=== PATIENT | female | born 1985 | race Caucasian/White ===

== ENCOUNTER 2019-11-01 15:42 | Outpatient (CLI) | payer BC, SELFPAY ==
--- NOTE | ~2019-11-01 | CT_ITS ---
EXAMINATION: CT abdomen pelvis wo/w con DATE: 11/01/2019 16:43 INDICATION: Hematuria TECHNIQUE: Computed tomography (CT) of the abdomen and pelvis was performed without intravenous contr ast. CT of the abdomen and pelvis was then performed with a total of 130 mL Omnipaque 350 intravenous contrast using a double-bolus technique for simultaneous opacification of the renal parenchyma and r enal collecting system. The dose-length product (DLP) was 2864.49 mGy-cm. Maximum intensity projectio n 3D-reconstructions of the collecting system were created by the technologist at a separate workstat ion. Automated exposure control and iterative reconstruction technique were employed. COMPARISON: None FINDINGS: The lung bases are clear. The heart size is normal. The liver, spleen, pancreas, gallbladde r, and adrenal glands are normal. The kidneys are unremarkable. No stones are identified in the kidne ys, ureters, or bladder. There is no hydronephrosis or hydroureter. No suspicious renal or urothelial lesion is identified. There is chronic increase in number of nonenlarged retroperitoneal lymph nodes . There is no free intraperitoneal gas or evidence of bowel obstruction. A suture line is noted in th e right adnexa. There is a 2.4 cm cyst of the left ovary. A fat-containing umbilical hernia is noted. An IUD is present in the uterus in expected position. IMPRESSION: 1. No CT correlate for the patient's symptoms. Reviewed, dictated and finalized at location A.
--- NOTE | ~2019-11-01 | XR_ITS ---
EXAMINATION: XR abdomen/kub 1V INDICATION: Hematuria TECHNIQUE: Supine views of the abdomen were obtained on 2 radiographs. COMPARISON: None FINDINGS: No abnormal calcifications are identified. The bowel gas pattern is normal. A moderate volu me of colonic stool is present. An IUD is noted in the pelvis. IMPRESSION: 1. No radiographic correlate for the patient's symptoms. Reviewed, dictated and finalized at location A.
[2019-11-01 16:11] LABS: Basophils Absolute Auto 0.1 K/mm3 (0.0-0.1); Basophils Percent Auto 0.7 % (0.2-1.2); Eosinophils Absolute Auto 0.6 K/mm3 (0-0.3); Eosinophils Percent Auto 6.1 % (0-4.4); Hematocrit 38.8 % (37.0-47.0); Hemoglobin 13.1 g/dL (12.0-15.0); Immature Granulocyte Absolute 0.03 K/mm3 (0.00-0.031); Immature Granulocyte Percent A 0.3 % (0-0.5); Lymphocytes Percent Auto 17.5 % (18.3-44.2); Mean Corpuscular HGB Conc 33.8 g/dl (32-36); Mean Corpuscular Hemoglobin 30.9 pg (26-34); Mean Corpuscular Volume 91.5 fl (80-100); Mean Platelet Volume 9.9 fl (7.4-10.4); Monocytes Absolute Auto 0.5 K/mm3 (0.1-0.6); Monocytes Percent Auto 5.1 % (2.6-8.5); Neutrophils Absolute Auto 7.2 K/mm3 (1.3-6.7); Neutrophils Percent Auto 70.3 % (45.5-73.1); Platelet Count Result 257 k/mm3 (150-375); Red Blood Count 4.24 M/mm3 (4.2-5.4); Red Cell Distribution Width 13.1 % (11.5-14.5); White Blood Count 10.3 K/mm3 (4.5-10.0)
[2019-11-01 16:22] LABS: Blood Urea Nitrogen 10 mg/dL (7-17); Calcium 8.4 mg/dL (8.4-10.2); Carbon Dioxide 29 mmol/L (22-30); Chloride 103 mmol/L (98-107); Estimated Glomerular Filt Rate > 60; Glucose 106 mg/dL (65-105); Potassium 3.6 mmol/L (3.4-5.0); Sodium 138 mmol/L (137-145)
== END 2019-11-01 15:43 | disposition home or self-care (01) ==
PROVIDERS: PCP Family Medicine; Visit Provider Nurse Practitioner Family
DX: R10.9 Unspecified abdominal pain (principal); R31.9 Hematuria, unspecified
CPT/HCPCS: 36415; 74018; 74178; 80048; 85025; Q9967

== ENCOUNTER 2020-01-06 11:30 | Outpatient (CLI) | payer BC, SELFPAY ==
[2020-01-06 13:15] LABS: Blood Urea Nitrogen 13 mg/dL (7-17); Calcium 9.6 mg/dL (8.4-10.2); Carbon Dioxide 30 mmol/L (22-30); Chloride 103 mmol/L (98-107); Estimated Glomerular Filt Rate > 60; Glucose 87 mg/dL (65-105); Potassium 4.2 mmol/L (3.4-5.0); Sodium 138 mmol/L (137-145)
[2020-01-06 13:55] LABS: Free T4 Free Thyroxine 0.95 ng/mL (0.78-2.19); Vitamin D 25 Hydroxy 41.9 ng/mL
[2020-01-06 18:33] LABS: Hemoglobin A1C 4.9 % (<5.7)
== END 2020-01-06 11:31 | disposition home or self-care (01) ==
LOC: ANHLAB 11:32
PROVIDERS: PCP Family Medicine; Visit Provider Physician Assistant
DX: E03.9 Hypothyroidism, unspecified (principal); Z86.32 Personal history of gestational diabetes; E55.9 Vitamin D deficiency, unspecified
CPT/HCPCS: 36415; 80048; 82306; 83036; 84439; 84443

== ENCOUNTER 2020-05-31 14:24 | Outpatient (CLI) | payer BC, SELFPAY ==
[2020-05-31 15:40] LABS: Free T4 Free Thyroxine 0.79 ng/mL (0.78-2.19)
[2020-06-04 06:32] LABS: Triiodothyronine T3 Free 2.7 pg/mL (2.3-4.2)
== END 2020-05-31 14:25 | disposition home or self-care (01) ==
PROVIDERS: PCP Family Medicine; Visit Provider Physician Assistant
DX: E03.9 Hypothyroidism, unspecified (principal)
CPT/HCPCS: 36415; 84439; 84443; 84481

== ENCOUNTER 2020-08-08 09:33 | Outpatient (CLI) | payer BC, SELFPAY ==
[2020-08-08 10:21] LABS: Hemoglobin A1C 4.9 % (<5.7)
[2020-08-08 10:22] LABS: Anion Gap 8 mmol/L (8-16); Blood Urea Nitrogen 13 mg/dL (7-17); Calcium 8.9 mg/dL (8.4-10.2); Carbon Dioxide 30 mmol/L (22-30); Chloride 102 mmol/L (98-107); Estimated Glomerular Filt Rate > 60; Glucose 100 mg/dL (65-105); Potassium 3.9 mmol/L (3.4-5.0); Sodium 140 mmol/L (137-145)
[2020-08-08 10:47] LABS: Free T4 Free Thyroxine 1.25 ng/mL (0.78-2.19); Vitamin D 25 Hydroxy 44.2 ng/mL
== END 2020-08-08 09:34 | disposition home or self-care (01) ==
LOC: ANHLAB 09:34
PROVIDERS: PCP Family Medicine; Visit Provider Physician Assistant
DX: E55.9 Vitamin D deficiency, unspecified (principal); E03.9 Hypothyroidism, unspecified; Z86.32 Personal history of gestational diabetes
CPT/HCPCS: 36415; 80048; 82306; 83036; 84439; 84443

== ENCOUNTER 2021-02-16 08:01 | Outpatient (CLI) | payer BC, SELFPAY ==
[2021-02-16 09:50] LABS: Hemoglobin 14.1 g/dL (12.0-15.0); Mean Corpuscular HGB Conc 35.3 g/dl (32-36); Mean Corpuscular Hemoglobin 31.7 pg (26-34); Mean Corpuscular Volume 89.9 fl (80-100); Mean Platelet Volume 10.1 fl (7.4-10.4); Platelet Count Result 254 k/mm3 (150-375); Red Blood Count 4.45 M/mm3 (4.2-5.4); Red Cell Distribution Width 12.8 % (11.5-14.5); White Blood Count 7.1 K/mm3 (4.5-10.0)
[2021-02-16 10:05] LABS: Anion Gap 8 mmol/L (8-16); Blood Urea Nitrogen 13 mg/dL (7-17); Calcium 9.2 mg/dL (8.4-10.2); Carbon Dioxide 29 mmol/L (22-30); Chloride 104 mmol/L (98-107); Cholesterol 166 mg/dL (0-200); Estimated Glomerular Filt Rate > 60; Glucose 90 mg/dL (65-105); HDL Direct 39 mg/dL; Potassium 3.7 mmol/L (3.4-5.0); Sodium 141 mmol/L (137-145); Triglycerides 78 mg/dL (<150)
[2021-02-16 10:16] LABS: LDL Cholesterol Direct 97 mg/dL
[2021-02-16 11:05] LABS: Vitamin D 25 Hydroxy 33.8 ng/mL
== END 2021-02-16 08:02 | disposition home or self-care (01) ==
LOC: ANHLAB 08:01
PROVIDERS: PCP Family Medicine; Referring Provider Internal Medicine Endocrinology, Diabetes & Metabolism; Visit Provider Nurse Practitioner Family
DX: Z13.1 Encounter for screening for diabetes mellitus (principal); E55.9 Vitamin D deficiency, unspecified; E03.9 Hypothyroidism, unspecified; J01.00 Acute maxillary sinusitis, unspecified; Z13.220 Encounter for screening for lipoid disorders
CPT/HCPCS: 36415; 80048; 80061; 82306; 84439; 84443; 85027

== ENCOUNTER 2021-08-22 08:30 | Emergency (ER) | payer BC, SELFPAY ==
[2021-08-22 08:34] VITALS: BP 144/84; PULSE 72; RESP 16; TEMP 36.1; O2SAT 100
[2021-08-22 08:45] VITALS: BP 144/84; PULSE 72; RESP 16; TEMP 36.1; O2SAT 100
[2021-08-22 08:47] VITALS: O2SAT 100
[2021-08-22] MEDS: SODIUM CHLORIDE 0.9% IV 1,000 ML 999 ML IV CONT (10:06)
[2021-08-22] MEDS: KETOROLAC 15 MG/ML VIAL (*BKC) IV PUSH (10:06)
[2021-08-22] MEDS: ONDANSETRON INJ 4 MG/2 ML VIAL IV PUSH (10:07)
[2021-08-22 10:10] LABS: Basophils Percent Auto 0.5 % (0.2-1.2); Eosinophils Absolute Auto 0.3 K/mm3 (0-0.3); Eosinophils Percent Auto 3.5 % (0-4.4); Hematocrit 37.7 % (37.0-47.0); Immature Granulocyte Absolute 0.02 K/mm3 (0.00-0.031); Immature Granulocyte Percent A 0.2 % (0-0.5); Lymphocytes Absolute Auto 1.33 K/mm3 (0.9-3.2); Lymphocytes Percent Auto 16.5 % (18.3-44.2); Mean Corpuscular HGB Conc 34.5 g/dl (32-36); Mean Corpuscular Hemoglobin 31.8 pg (26-34); Mean Corpuscular Volume 92.2 fl (80-100); Mean Platelet Volume 9.3 fl (7.4-10.4); Monocytes Absolute Auto 0.4 K/mm3 (0.1-0.6); Monocytes Percent Auto 4.5 % (2.6-8.5); Neutrophils Percent Auto 74.8 % (45.5-73.1); Platelet Count Result 253 k/mm3 (150-375); Red Blood Count 4.09 M/mm3 (4.2-5.4); Red Cell Distribution Width 13.1 % (11.5-14.5); White Blood Count 8.1 K/mm3 (4.5-10.0)
--- NOTE | 2021-08-22 10:24 | PC.NURSE ---
Patient refused Decadron stating, she doesnt like steroids
[2021-08-22 10:55] LABS: Alanine Aminotransferase 23 U/L (4-35); Albumin Level 4.3 g/dL (3.5-5.1); Alkaline Phosphatase 38 U/L (38-126); Anion Gap 6 mmol/L (8-16); Aspartate Amino Transferase 28 U/L (14-36); Bilirubin,Total 0.5 mg/dL (0.2-1.3); Blood Urea Nitrogen 15 mg/dL (7-17); Calcium 8.8 mg/dL (8.4-10.2); Carbon Dioxide 29 mmol/L (22-30); Chloride 103 mmol/L (98-107); Estimated CRCL calculation 123 ml/min; Estimated Glomerular Filt Rate > 60; Glucose 95 mg/dL (65-110); Potassium 4.1 mmol/L (3.4-5.0); Sodium 138 mmol/L (137-145)
[2021-08-22 11:04] VITALS: BP 128/78; PULSE 62; RESP 16; O2SAT 94
--- NOTE | 2021-08-22 12:23 | ED.GENADULT ---
HPI - General Adult General Chief complaint: Upper Respiratory Infection Stated complaint: estes Time Seen by Provider: 08/22/21 09:08 Source: patient Mode of arrival: ambulatory Limitations: no limitations History of Present Illness HPI narrative: Patient is a 36-year-old female with chief complaint of headache and congestion over the past 3 days. Patient reports that she is a chronic migraine suffer however this migraine is in the frontal aspect of her head and down posteriorly has not been evacuated by taking her Maxalt. Patient denies changes to her vision or hearing or neurological deficits. Patient reports nausea and a few episodes of vomiting. Patient reports mild photophobia. Denies any gait changes, extremity weakness, speech changes. patient reports she was exposed to COVID via close contact. Related Data Home Medications Medication Instructions Recorded Confirmed spironolactone 100 mg tablet 100 mg PO DAILY 08/23/19 08/21/21 spironolactone 25 mg tablet 25 mg PO DAILY 02/06/21 08/21/21 Allergies Allergy/AdvReac Type Severity Reaction Status Date / Time No Known Allergies Allergy Verified 08/21/21 09:24 Review of Systems Review of Systems: CONSTITUTIONAL: Denies fever, chills, or sweats. EYES: Denies visual changes, redness, or discharge. ENT: Reports rhinorrhea or congestion Denies sore throat or otalgia. CARDIOVASCULAR: Denies chest pain, palpitations, or edema. RESPIRATORY: Denies cough or dyspnea. GASTROINTESTINAL: Denies abdominal pain, nausea, vomiting, or diarrhea. GENITOURINARY: Denies dysuria or hematuria. SKIN: Denies rash or itching. MUSCULOSKELETAL: Denies back pain, joint pain, or myalgia. NEUROLOGIC: Reports headache,Denies numbness, dizziness, or weakness. PSYCHIATRIC: Denies anxiety or depression. [facility] Past Medical History Medical History (Updated 08/22/21 @ 12:42 by Osei Tidwell PA-C) Anxiety and depression Colonic diverticular disease History of gestational diabetes mellitus, not currently Hypothyroidism (acquired) Plantar fasciitis Right ankle pain Right foot pain Rupture of plantar fascia of right foot Vitamin D deficiency, unspecified Surgical History Surgical History History of bilateral breast reduction surgery 2015 History of delivery 2005, 2012, 2017 History of D&C 2016 History of repair of ACL 2009 Family History Family History Grandparent Cerebrovascular accident Other Diabetes mellitus Family history of obesity Family history of thyroid disease Social History Social History Years smoked: 5 Smoking status: Current every day smoker Second hand tobacco smoke exposure: No Alcohol intake: current Alcohol use details: Occasional Substance use: current Substance use type: marijuana 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 HEAD: Normocephalic, atraumatic. EYES: PERRLA and EOMI. CHEST: Clear to auscultation. No respiratory distress. No wheezes rales or rhonchi. HEART: Regular rate and rhythm. No murmur heard. Normal peripheral pulses. EXTREMITIES: Normal range of motion. No edema. SKIN: Warm, dry, no rash. NEURO: No focal deficits. Alert and oriented x3. Gait is steady. Speech clear and appropriate. PSYCH: Normal mood and affect. Course Vital Signs Vital signs: Vital Signs Temperature 96.9 F L 08/22/21 08:34 Pulse Rate 72 08/22/21 08:34 Respiratory Rate 16 08/22/21 08:34 Blood Pressure 144/84 H 08/22/21 08:34 Pulse Oximetry 100 08/22/21 08:34 Temperature 96.9 F L 08/22/21 08:45 Pulse Rate 73 08/22/21 12:54 Respiratory Rate 18 08/22/21 12:54 B
[2021-08-22 12:54] VITALS: BP 125/83; PULSE 73; RESP 18; O2SAT 100
[2021-08-22 20:49] LABS: SARS-CoV-2 RNA PCR Negative
== END 2021-08-22 12:55 | disposition home or self-care (01) ==
PROVIDERS: Physician Assistant; Emergency Provider Emergency Medicine; PCP Family Medicine
DX: R51.9 Headache, unspecified (principal); F41.9 Anxiety disorder, unspecified; F32.9 Major depressive disorder, single episode, unspecified; E03.9 Hypothyroidism, unspecified
CPT/HCPCS: 36415; 80053; 85025; 96361; 96374; 96375; 99284; C9803; J1885; J2405; J7030; U0003; U0005

== ENCOUNTER 2021-09-27 00:32 | Day surgery (SDC) | payer BC, SELFPAY ==
[2021-09-20 11:04] VITALS: BMI 36.3
--- NOTE | 2021-09-20 11:18 | PC.NURSE ---
Report to the Outpatient Waiting Room, entrance under the green pavilion located off [facility], at time 0600 on date 09/27/21. OR Time: 0730. - You will be asked a series of questions to screen for COVID 19 for your protection. - A mask is required within the hospital. - No visitors are allowed at this time. Preoperative COVID Testing Requirements: TO E-MAIL COPY OF CARD No COVID Test needed if: (proof is required; if not received patient will have Rapid Test prior to entry) - Patient has received COVID Vaccine at least 14 days prior to procedure date or - Patient has positive COVID test result within last 90 days of surgery date. COVID Test needed if above criteria is not met Patients may have clear liquids (water, carbonated beverages, clear teas, apple juice) until 3 hours prior to surgery with a maximum of 20 ounces. - No food from midnight until time of surgery Take the following medications with a SIP of water the morning of surgery: LEVOTHYROXINE Medications to discontinue per physician: N/A Date to take last dose: N/A Please no make-up, nail swedish, hairspray, perfume, deodorant, or body powder the day of surgery. No jewelry (including any body piercings) or valuables the day of surgery, leave them at home. Please take a shower or bath the night before, or the morning of, surgery with an antibacterial soap. Wear comfortable, loose fitting clothing. - Jewelry must be removed prior to entering the operating room. Rings and piercings that are not removed may be cut off. - The hospital will not accept responsibility for valuables. - Please leave all valuables, including medications, at home the day of surgery. If you are going home after surgery, a licensed hazmat cdl driver must drive you home. - NO public transportation without another adult. - We recommend that an adult stay with you for 24 hours following discharge. - We also recommend that you do not drive, make important decision, drink alcoholic beverages, or take any drugs that were not prescribed by your health care provider for at least 24 hours after your discharge time. Follow any additional instructions given to you from your surgeon. Telephone instructions given to KAY MIRZA and asked if any additional questions and then verbalized understanding. Patient advised to call surgeon office or pre surgery nurse liaison [phone] if any additional questions.
--- NOTE | 2021-09-26 09:36 | PM.IMHP ---
H&P: HPI History of Present Illness Date/Time: 09/26/21 09:36 Chief Complaint: Right foot pain Narrative: 36-year-old with right foot pain. Previous ankle fracture. Subsequent has had plantar heel pain which is worse with weight-bearing and activity. Worse at the end of the day. She has undergone several cortisone injections, physical therapy, home exercises and continues to have symptoms. She presents now for operative treatment. Review of Systems Constitutional: Constitutional: Denies fever(s) Eyes: Eyes: Denies blurry vision ENT: Reports Normal hearing present Cardiovascular: Cardiovascular: Denies chest pain and Denies dyspnea Respiratory: Respiratory: Denies dyspnea and Denies wheezing Gastrointestinal: Gastrointestinal: Denies abdominal pain Genitourinary: Genitourinary: Denies urinary urgency Musculoskeletal: Musculoskeletal: Reports as per HPI and Denies numbness Integumentary/Breasts: Skin/Breast: Denies changing lesions and Denies sores Neurologic: Reports Normal hearing present, Denies behavioral changes, Denies confusion, Denies numbness and Denies convulsions Psychiatric: Psychiatric: Denies behavioral changes, Denies confusion and Denies hallucinations Endocrine: Endocrine: Denies heat intolerance Hematologic/Lymphatic: Hematologic/Lymphatic: Denies easy bleeding Allergic/Immunologic: Allergic/Immunologic: Denies wheezing PMFSH Past Medical History Medical History Anxiety and depression Colonic diverticular disease History of gestational diabetes mellitus, not currently Hypothyroidism (acquired) Plantar fasciitis Right ankle pain Right foot pain Rupture of plantar fascia of right foot Vitamin D deficiency, unspecified Surgical History Surgical History History of bilateral breast reduction surgery 2015 History of delivery 2005, 2012, 2017 History of D&C 2016 History of repair of ACL 2009 Family History Family History Grandparent Cerebrovascular accident Other Diabetes mellitus Family history of obesity Family history of thyroid disease Social History Social History Smoking packs per day: 0.5 Smoking cigarettes per day: 10.0 Years smoked: 5 Smoking pack-years: 2.50 Smoking status: Former smoker Tobacco type: cigarettes Second hand tobacco smoke exposure: No Smoking end date: 08/18/07 Alcohol intake: current Drinks per week: 4 Alcohol use details: Occasional Substance use: never Substance use type: does not use Living arrangements: with family 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 Gender identity (if verbalized by the patient): Female Spiritual care concerns: No Meds Home Medications and Allergies Home Medications Medication Instructions Recorded Confirmed Type spironolactone 100 mg tablet 100 mg PO DAILY 08/23/19 09/20/21 History levothyroxine 112 mcg tablet 112 mcg PO QAM 30 Days #30 tablet 02/06/21 09/20/21 Rx spironolactone 25 mg tablet 25 mg PO DAILY 02/06/21 09/20/21 History liraglutide (weight loss) 3 mg/0.5 2.4 mg SUB-Q DAILY #15 ml 09/24/21 Rx mL (18 mg/3 mL) subcut pen injector scopolamine base 1 mg over 3 days 1 patch TRANSDERMAL Q3D PRN #4 ea 09/25/21 Rx transdermal patch pen needle, diabetic 31 gauge x #100 ea 09/26/21 Rx 1/6 Allergies Allergy/AdvReac Type Severity Reaction Status Date / Time No Known Allergies Allergy Verified 09/20/21 11:03 Exam Const: General: healthy appearing; No in distress or confusion Orientation/consciousness: oriented to person, oriented to place, oriented to time and No confusion HENMT: Head: normal to inspection, normocephalic and atraumatic Eyes: Conjunctivae: conjunctivae n
[2021-09-27] VITALS (7 sets, daily range): BP systolic 102–134; BP diastolic 48–69; PULSE 70–90; RESP 16; TEMP 36.6; O2SAT 93–99
[2021-09-27] MEDS: ACETAMINOPHEN 500 MG TABLET 1000 MG PO (06:31)
[2021-09-27] MEDS: LACTATED RINGERS 1,000 ML 30 ML IV CONT (06:45)
[2021-09-27] MEDS: KETOROLAC 15 MG/ML VIAL (*BKC) IV PUSH (06:48)
--- NOTE | 2021-09-27 06:52 | WPDANESEPPF ---
Anes - Initial Pre Proc Eval Procedure: Operation Date: 09/27/21 07:30 Proposed Procedures p Right Plantar Fasciotomy - Michael Renae MD Date/Time: 09/27/21 06:52 Surgeon: Michael Renae MD Pre Op Diagnosis: Rt Plantar Fasciitis, Rt Heel Pain Patient Data Age: 36 Gender: F Height: 1.62 m Weight: 95.85 kg Last Vital Signs Temp 36.6 C 09/27/21 06:26 Pulse 73 09/27/21 06:26 Resp 16 09/27/21 06:26 BP 134/69 09/27/21 06:26 Pulse Ox 99 09/27/21 06:26 Allergies Allergy/AdvReac Type Severity Reaction Status Date / Time No Known Allergies Allergy Verified 09/27/21 06:32 Home Medications Medication Instructions Recorded Confirmed Type spironolactone 100 mg tablet 100 mg PO DAILY 08/23/19 09/27/21 History levothyroxine 112 mcg tablet 112 mcg PO QAM 30 Days #30 tablet 02/06/21 09/27/21 Rx spironolactone 25 mg tablet 25 mg PO DAILY 02/06/21 09/27/21 History liraglutide (weight loss) 3 mg/0.5 2.4 mg SUB-Q DAILY #15 ml 09/24/21 09/27/21 Rx mL (18 mg/3 mL) subcut pen injector scopolamine base 1 mg over 3 days 1 patch TRANSDERMAL Q3D PRN #4 ea 09/25/21 09/27/21 Rx transdermal patch pen needle, diabetic 31 gauge x #100 ea 09/26/21 Rx 1/6 Patient hx anesthesia problems: post op nausea/vomiting Family hx anesthesia problems: none Results Review: All pre-operative results and documents have been reviewed as part of the pre-operative evaluation. [facility] Past Medical History Medical History (Updated 09/26/21 @ 14:11 by Quique Dukes DO) Anxiety and depression Colonic diverticular disease History of gestational diabetes mellitus, not currently Hypothyroidism (acquired) Plantar fasciitis PONV (postoperative nausea and vomiting) Right ankle pain Right foot pain Rupture of plantar fascia of right foot Vitamin D deficiency, unspecified Surgical History Surgical History History of bilateral breast reduction surgery 2015 History of delivery 2006, 2012, 2017 History of D&C 2016 History of repair of ACL 2009 Family History Family History Grandparent Cerebrovascular accident Other Diabetes mellitus Family history of obesity Family history of thyroid disease Social History Social History Smoking packs per day: 0.5 Smoking cigarettes per day: 10.0 Years smoked: 5 Smoking pack-years: 2.50 Smoking status: Former smoker Tobacco type: cigarettes Second hand tobacco smoke exposure: No Smoking end date: 08/18/07 Alcohol intake: current Drinks per week: 4 Alcohol use details: Occasional Substance use: never Substance use type: does not use Living arrangements: with family 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 Informed Consent: The patient's anesthetic plan and its attendant risks and benefits were discussed with the patient/family/POA. Questions were solicited and answers provided to the satisfaction of the patient/family/POA.
--- NOTE | 2021-09-27 07:14 | WPDHPUPDATE1 ---
History and Physical Update Update Date/Time: 09/27/21 07:14 History and Physical has been reviewed, including an updated exam of the patient. There are NO changes in the patient's condition. Risks, benefits, and alternatives have been discussed and questions answered. Patient agrees to proceed with procedure.
[2021-09-27] MEDS: ceFAZolin 2 GM/D5W 50 ML 2 GM/50 ML BAG IVPB (07:24)
--- NOTE | 2021-09-27 07:41 | SUR.PREOP ---
0710 pt aware how to use crutches.crutches ordered for discharge. dr cervantes aware nail malay to right toes.okayed to continue with procedure.
[2021-09-27] MEDS: BUPIVACAINE/EPINEPHRINE 0.5% 30 ML VIAL 10 ML INFILTRATE (07:49)
--- NOTE | 2021-09-27 08:01 | W.PM.PROC2 ---
Procedure Note - Detailed Date of Procedure 09/27/21 Pre-op Diagnosis Rt Plantar Fasciitis, Rt Heel Pain Post-op Diagnosis same Procedure Performed Right plantar fasciotomy Surgeon Michael Renae MD Anesthesia MAC Indications Patient is a 36-year-old woman with recalcitrant right plantar fasciitis and heel pain. They have failed conservative treatment with physical therapy, home stretching, custom inserts, cortisone injections and medication. She presents now for operative treatment. Description of Procedure Patient identified in the preoperative holding. Informed consent given. Operative extremity marked. Patient received intravenous antibiotics. Patient brought to the operating room where underwent general anesthetic by anesthesia team. Positioned supine on operating room table. Time-out performed confirming the patient, site of the surgery and the plan. Right foot prepped and draped usual sterile surgical fashion using a ChloraPrep skin solution. 0.5% Marcaine plain was used as local anesthetic for both the right heel. Patient marked the area of maximum intensity of pain on the right heel. Using this as a centering point we made an approximately 4 centimeter sq around this area. Addressing the right foot we then used a 0.062 in K-wire to incise the skin in multiple positions for a total of 20 points. The radiofrequency probe was then inserted into each point and a radiofrequency shock was delivered to the area. At each area a release and division of the plantar fascia was performed. Steri-Strips were then applied to the foot. Sterile dressing placed. Patient transported to the recovery room in stable condition. All sponge needle and instrument counts correct at the end of the case. Estimated Blood Loss 5 Tourniquet Time 10 Drains No Packing No Pathology none sent Complications None Condition stable Disposition PACU
[2021-09-27] MEDS: diphenhydrAMINE HCl INJ 50 MG/ML VIAL 25 MG IV PUSH (08:47)
[2021-09-27] MEDS: fentaNYL CITRATE INJ (*CRX) 100 MCG/2 ML VIAL 25 MCG IV PUSH (08:52)
[2021-09-27] MEDS: HALOPERIDOL LACTATE 5 MG/ML VIAL 1 MG IV PUSH (09:12)
--- NOTE | 2021-09-27 10:53 | SUR.PHASEII ---
PT NAUSEA AND PAIN IS CONTROLLED. DISCHARGED TO SPOUSE.
== END 2021-09-27 10:30 | disposition home or self-care (01) ==
PROVIDERS: PCP Family Medicine; Visit Provider Orthopaedic Surgery
PROC: (CPT 28008; principal; 2021-09-27 07:30)
DX: M72.2 Plantar fascial fibromatosis (principal); E03.9 Hypothyroidism, unspecified; E55.9 Vitamin D deficiency, unspecified; F41.8 Other specified anxiety disorders; Z79.899 Other long term (current) drug therapy; Z87.891 Personal history of nicotine dependence; E66.9 Obesity, unspecified; Z68.36 Body mass index [BMI] 36.0-36.9, adult
CPT/HCPCS: 28008; A9270; C1713; J0690; J1100; J1200; J1630; J1885; J2250; J2405; J2704; J3010; J7120

== ENCOUNTER 2021-12-26 12:06 | Outpatient (CLI) | payer BC, SELFPAY ==
[2021-12-26 16:52] LABS: Free T4 Free Thyroxine 1.14 ng/mL (0.78-2.19)
== END 2021-12-26 12:07 | disposition home or self-care (01) ==
LOC: ANHWCLAB 12:08
PROVIDERS: PCP Family Medicine; Referring Provider Internal Medicine Endocrinology, Diabetes & Metabolism; Visit Provider Internal Medicine Endocrinology, Diabetes & Metabolism
DX: E03.9 Hypothyroidism, unspecified (principal)
CPT/HCPCS: 36415; 84439; 84443

== ENCOUNTER 2022-03-03 14:07 | Emergency (ER) | payer BC, SELFPAY ==
[2022-03-03 14:22] VITALS: BP 121/63; PULSE 71; RESP 16; TEMP 36.3; O2SAT 99
--- NOTE | 2022-03-03 14:35 | ED.LOWEXIN ---
HPI - Extremity Injury (Lower) General Chief Complaint: Extremity Injury, Lower Stated Complaint: swollen left foot Time Seen by Provider: 03/03/22 14:35 Source: patient, RN notes reviewed and old records reviewed Mode of arrival: ambulatory Limitations: no limitations History of Present Illness HPI Narrative: 37-year-old female presents to the [facility] with complaints of a swollen left foot. Patient was stung on the plantar aspect middle toe left foot about a week ago. Continues to have pain and swelling. No redness or increased warmth noted. Patient states she tried taking Benadryl but it makes her too tired. Onset (ago): day(s) (7) Related Data Home Medications Medication Instructions Recorded Confirmed spironolactone 100 mg tablet 100 mg PO DAILY 08/23/19 12/26/21 spironolactone 25 mg tablet 25 mg PO DAILY 02/06/21 12/26/21 Allergies Allergy/AdvReac Type Severity Reaction Status Date / Time No Known Allergies Allergy Verified 03/03/22 15:13 Review of Systems Review of Systems: All systems reviewed & are unremarkable except as noted in HPI and below Constitutional: Constitutional: Reports no additional constitutional complaints, Denies chills and Denies fever(s) Eyes: Eyes: Reports no additional eye complaints ENT: Reports system reviewed and no additional complaints, except as documented Cardiovascular: Cardiovascular: Reports no additional cardiovascular complaints Respiratory: Respiratory: Reports no additional respiratory complaints Gastrointestinal: Gastrointestinal: Reports no additional gastrointestinal complaints Musculoskeletal: Musculoskeletal: Reports as per HPI (Swollen left middle toe and left foot) Integumentary/Breasts: Skin/Breast: Reports system reviewed and no additional complaints, except as docu Neurologic: Reports system reviewed and no additional complaints, except as documented Psychiatric: Psychiatric: Reports no additional psychiatric complaints Allergic/Immunologic: Allergic/Immunologic: Reports no additional allergic/immunologic complaints PMFSH Past Medical History Medical History Anxiety and depression Colonic diverticular disease History of gestational diabetes mellitus, not currently Hypothyroidism (acquired) Plantar fasciitis PONV (postoperative nausea and vomiting) Right ankle pain Right foot pain Rupture of plantar fascia of right foot Vitamin D deficiency, unspecified Surgical History Surgical History H/O foot surgery History of bilateral breast reduction surgery 2015 History of delivery 2006, 2012, 2017 History of D&C 2016 History of repair of ACL 2009 Family History Family History Grandparent Cerebrovascular accident Other Diabetes mellitus Family history of obesity Family history of thyroid disease Social History Social History Smoking packs per day: 0.5 Smoking cigarettes per day: 10.0 Years smoked: 5 Smoking pack-years: 2.50 Smoking status: Former smoker Tobacco type: cigarettes Second hand tobacco smoke exposure: No Smoking end date: 08/18/07 Alcohol intake: current Drinks per week: 4 Alcohol use details: Occasional Substance use: never Substance use type: does not use 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 There is no relevant family history pertinent to the patient complaint. Exam Const: General: healthy appearing, no acute distress and alert Nutritional Appearance: well nourished and obese Orientation/consciousnes
== END 2022-03-03 15:10 | disposition home or self-care (01) ==
PROVIDERS: Emergency Provider Nurse Practitioner
DX: T63.441A Toxic effect of venom of bees, accidental (unintentional), initial encounter (principal); Z87.891 Personal history of nicotine dependence; E03.9 Hypothyroidism, unspecified
CPT/HCPCS: 99213; G0463

== ENCOUNTER 2022-12-25 15:46 | Outpatient (CLI) | payer BC, SELFPAY ==
[2022-12-25 17:42] LABS: Anion Gap 7 mmol/L (8-16); Blood Urea Nitrogen 14 mg/dL (7-17); Carbon Dioxide 29 mmol/L (22-30); Chloride 101 mmol/L (98-107); Estimated Glomerular Filt Rate > 60; Glucose 86 mg/dL (65-110); Potassium 3.9 mmol/L (3.4-5.0); Sodium 137 mmol/L (137-145)
[2022-12-25 21:27] LABS: Free T4 Free Thyroxine 0.99 ng/mL (0.78-2.19)
== END 2022-12-25 15:47 | disposition home or self-care (01) ==
LOC: ANHWCLAB 15:47
PROVIDERS: PCP Family Medicine; Visit Provider Internal Medicine Endocrinology, Diabetes & Metabolism
DX: E03.9 Hypothyroidism, unspecified (principal); E66.9 Obesity, unspecified
CPT/HCPCS: 36415; 80048; 84439; 84443

== ENCOUNTER 2023-06-24 09:17 | Outpatient (CLI) | payer BC, SELFPAY ==
[2023-06-24 17:15] LABS: Free T4 Free Thyroxine 1.28 ng/mL (0.78-2.19)
== END 2023-06-24 09:18 | disposition home or self-care (01) ==
PROVIDERS: PCP Family Medicine; Visit Provider Internal Medicine Endocrinology, Diabetes & Metabolism
DX: E03.9 Hypothyroidism, unspecified (principal); E66.9 Obesity, unspecified
CPT/HCPCS: 36415; 84439; 84443

== ENCOUNTER 2023-06-26 09:57 | Outpatient (CLI) | payer BC, SELFPAY ==
[2023-06-26 10:17] LABS: Hematocrit 38.7 % (37.0-47.0); Hemoglobin 13.2 g/dL (12.0-15.0); Mean Corpuscular HGB Conc 34.1 g/dl (32-36); Mean Corpuscular Hemoglobin 32.1 pg (26-34); Mean Corpuscular Volume 94.2 fl (80-100); Platelet Count Result 218 k/mm3 (150-375); Red Blood Count 4.11 M/mm3 (4.2-5.4); Red Cell Distribution Width 12.9 % (11.5-14.5); White Blood Count 5.2 K/mm3 (4.5-10.0)
[2023-06-26 10:30] LABS: Anion Gap 6 mmol/L (8-16); Blood Urea Nitrogen 11 mg/dL (7-17); Calcium 8.8 mg/dL (8.4-10.2); Carbon Dioxide 29 mmol/L (22-30); Chloride 103 mmol/L (98-107); Cholesterol 161 mg/dL (0-200); Estimated Glomerular Filt Rate > 60; Glucose 88 mg/dL (65-110); HDL Direct 45 mg/dL; Potassium 3.8 mmol/L (3.4-5.0); Sodium 138 mmol/L (137-145); Triglycerides 52 mg/dL (<150)
[2023-06-26 10:41] LABS: LDL Cholesterol Direct 96 mg/dL
[2023-06-26 10:53] LABS: Vitamin D 25 Hydroxy 26.6 ng/mL
== END 2023-06-26 09:58 | disposition home or self-care (01) ==
LOC: ANHLAB 09:58
PROVIDERS: PCP Family Medicine; Visit Provider Nurse Practitioner Family
DX: R11.2 Nausea with vomiting, unspecified (principal); E55.9 Vitamin D deficiency, unspecified; Z13.220 Encounter for screening for lipoid disorders; R10.9 Unspecified abdominal pain
CPT/HCPCS: 36415; 80048; 80061; 82306; 85027

== ENCOUNTER 2024-02-23 20:04 | Emergency (ER) | payer BC, SELFPAY ==
--- NOTE | ~2024-02-23 | CT_ITS ---
EXAMINATION: CT facial bones wo con DATE: 02/23/2024 21:47 INDICATION: Left periorbital injury. TECHNIQUE: Computed tomography (CT) of the facial bones and maxillofacial region was performed withou t intravenous contrast. Automated exposure control and iterative reconstruction technique were employ ed. The dose-length product was 331.22 mGy-cm. COMPARISON: None. FINDINGS: There is a hematoma in the left cheek. The orbits are normal. There is mucosal thickening i n the paranasal sinuses. There is leftward deviation of superior nasal septum and rightward deviation of the inferior nasal septum. IMPRESSION: 1. No fracture. Reviewed, dictated and finalized at location E. IMPRESSION: 1. No fracture.
--- NOTE | ~2024-02-23 | CT_ITS ---
EXAMINATION: CT brain wo con DATE: 02/23/2024 21:43 INDICATION: Left periorbital injury. TECHNIQUE: Computed tomography (CT) of the head was performed without intravenous contrast. The mA wa s adjusted according to patient size. Iterative reconstruction technique was employed. The dose-lengt h product was 529.67 mGy-cm. COMPARISON: Head CT 07/18/2008 FINDINGS: There is no intracranial hemorrhage, acute infarction, or abnormal intracranial mass lesion . The ventricles are normal in size. There is a hematoma superficial to the left zygoma. The orbits a re normal. The mastoid air cells are normal. There is mucosal thickening in the paranasal sinuses. IMPRESSION: 1. Normal brain. Reviewed, dictated and finalized at location E. IMPRESSION: 1. Normal brain.
[2024-02-23 20:05] VITALS: BP 149/78; PULSE 70; RESP 17; TEMP 36.4; O2SAT 100
--- NOTE | 2024-02-23 22:11 | ED.HEATRA ---
HPI - Head Injury General Chief complaint: Head Injury Stated complaint: hit with baseball in left eye Time Seen by Provider: 02/23/24 21:21 Related Data Home Medications Medication Instructions Recorded Confirmed spironolactone 100 mg tablet 100 mg PO DAILY 08/23/19 02/04/24 Allergies Allergy/AdvReac Type Severity Reaction Status Date / Time No Known Allergies Allergy Verified 02/23/24 20:12 [facility] Past Medical History Medical History (Updated 02/04/24 @ 12:11 by aPdmaja Perez APRN) Acute bacterial conjunctivitis of left eye Acute sinusitis Anxiety and depression Biceps tendinitis BMI 27.0-27.9,adult Breast ptosis Colonic diverticular disease Dog bite of finger Hematuria History of gestational diabetes mellitus, not currently Hypothyroidism (acquired) Intractable headache Micromastia Ovarian cyst Over weight Pharyngitis Plantar fasciitis PONV (postoperative nausea and vomiting) PONV (postoperative nausea and vomiting) Right ankle pain Right foot pain Rupture of plantar fascia of right foot Subconjunctival hemorrhage of left eye Vitamin D deficiency, unspecified Surgical History Surgical History H/O foot surgery History of bilateral breast reduction surgery 2015 History of delivery 2006, 2011, 2017 History of D&C 2016 History of repair of ACL 2009 Family History Family History Grandparent Cerebrovascular accident Father Mother No problems noted. Sibling No problems noted. Other Diabetes mellitus Family history of obesity Family history of thyroid disease Social History Social History Smoking packs per day: 0.5 Smoking cigarettes per day: 10.0 Years smoked: 5 Smoking pack-years: 2.50 Smoking status: Former smoker Tobacco type: cigarettes Second hand tobacco smoke exposure: No Smoking end date: 08/18/07 Alcohol intake: current Drinks per week: 4 Alcohol use details: socially Substance use: never Substance use type: does not use Do You Feel Safe in your Home?: Yes Lack of Transportation: No Lack of Food: Never True Current Housing: I Have Housing Concerned About Future Housing: No Difficulty Paying Gas/Electric Bills: No Difficulty Paying for Meds: No Currently Unemployed: No Education: Associate Degree Difficulty w/ Childcare or Family Care: No Living arrangements: with family Occupation/Education: occupation 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 Gender identity (if verbalized by the patient): Female Spiritual care concerns: No Course Vital Signs Vital signs: Vital Signs Temperature 36.4 C L 02/23/24 20:05 Pulse Rate 70 02/23/24 20:05 Respiratory Rate 17 02/23/24 20:05 Blood Pressure 149/78 H 02/23/24 20:05 Pulse Oximetry 100 02/23/24 20:05 Oxygen Delivery Room Air 02/23/24 20:05 Temperature 36.4 C L 02/23/24 20:05 Pulse Rate 70 02/23/24 20:05 Respiratory Rate 17 02/23/24 20:05 Blood Pressure 149/78 H 02/23/24 20:05 Pulse Oximetry 100 02/23/24 20:05 Oxygen Delivery Room Air 02/23/24 20:05 MDM - Head Injury Imaging Data Radiologist's impression: Impressions Head CT 02/23/24 21:53 IMPRESSION: 1. Normal brain. Face CT 02/23/24 21:55 IMPRESSION: 1. No fracture. Discharge Plan Discharge Prescriptions: No Action spironolactone 100 mg tablet 100 mg PO DAILY neomycin-polymyxin B-dexameth 3.5mg/mL-10,000 unit/mL-0.1 % drops,suspension 1 drp ophthalmic (eye) Q4H Qty: 5 0RF Rx Instructions: apply to left eye azithromycin 250 mg tablet See Rx Instructions PO .COMPLEX Qty: 6 0RF Rx Instructions: For 250 mg dose pack: take 500 mg today (day 1), then 250 mg
[2024-02-24 01:06] VITALS: BP 139/87; PULSE 84; RESP 15; O2SAT 100
[2024-02-24] MEDS: MORPHINE SULFATE (*CRX) 4 MG/ML INJ IV PUSH (01:21)
[2024-02-24] MEDS: ONDANSETRON INJ 4 MG/2 ML VIAL IV PUSH (01:21)
--- NOTE | 2024-02-24 01:29 | ED.GENADULT ---
HPI - General Adult General Chief complaint: Head Injury Stated complaint: hit with baseball in left eye Time Seen by Provider: 02/23/24 21:21 History of Present Illness HPI narrative: Patient is a 39-year-old female who presents to the emergency department this after blunt trauma to her left eye. Patient was playing catch with a baseball with her child when the baseball hit her in the left eye. Patient denies any loss of consciousness, denies any blood thinner use. Patient admits that her tetanus shot is up-to-date. She denies any changes to her vision and states that she does wear glasses but was not wearing glasses when this incident happened. Patient did not fall backwards or hit the back of her head which she got hit in the left thigh. Denies any additional symptoms or concerns at this time. 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 Related Data Home Medications Medication Instructions Recorded Confirmed spironolactone 100 mg tablet 100 mg PO DAILY 08/23/19 02/04/24 Allergies Allergy/AdvReac Type Severity Reaction Status Date / Time No Known Allergies Allergy Verified 02/23/24 20:12 Review of Systems Review of Systems: All systems are reviewed and are negative unless stated otherwise in the HPI. [facility] Past Medical History Medical History Acute bacterial conjunctivitis of left eye Acute sinusitis Anxiety and depression Biceps tendinitis BMI 27.0-27.9,adult Breast ptosis Colonic diverticular disease Dog bite of finger Hematuria History of gestational diabetes mellitus, not currently Hypothyroidism (acquired) Intractable headache Micromastia Ovarian cyst Over weight Pharyngitis Plantar fasciitis PONV (postoperative nausea and vomiting) PONV (postoperative nausea and vomiting) Right ankle pain Right foot pain Rupture of plantar fascia of right foot Subconjunctival hemorrhage of left eye Vitamin D deficiency, unspecified Surgical History Surgical History H/O foot surgery History of bilateral breast reduction surgery 2015 History of delivery 2006, 2012, 2017 History of D&C 2016 History of repair of ACL 2009 Family History Family History Grandparent Cerebrovascular accident Father Mother No problems noted. Sibling No problems noted. Other Diabetes mellitus Family history of obesity Family history of thyroid disease Social History Social History Smoking packs per day: 0.5 Smoking cigarettes per day: 10.0 Years smoked: 5 Smoking pack-years: 2.50 Smoking status: Former smoker Tobacco type: cigarettes Second hand tobacco smoke exposure: No Smoking end date: 08/18/07 Alcohol intake: current Drinks per week: 4 Alcohol use details: socially Substance use: never Substance use type: does not use Do You Feel Safe in your Home?: Yes Lack of Transportation: No Lack of Food: Never True Current Housing: I Have Housing Concerned About Future Housing: No Difficulty Paying Gas/Electric Bills: No Difficulty Paying for Meds: No Currently Unemployed: No Education: Associate Degree Difficulty w/ Childcare or Family Care: No Living arrangements: with family Occupation/Education: occupation 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 HEENT: Significant perioral swelling extending to mid left cheek, chemosis of the left eye at the 3 o'clock position, intact extraocular movements of the left eye without any evidence of muscle entrapment, pupils equal and round, reactive to light, small abrasions over the lateral
== END 2024-02-24 02:06 | disposition home or self-care (01) ==
PROVIDERS: Emergency Provider Emergency Medicine; PCP Family Medicine
DX: S05.90XA Unspecified injury of unspecified eye and orbit, initial encounter (principal); F41.9 Anxiety disorder, unspecified; F32.A Depression, unspecified; E03.9 Hypothyroidism, unspecified; W21.03XA Struck by baseball, initial encounter
CPT/HCPCS: 70450; 70486; 96374; 96375; 99284; J2270; J2405

== ENCOUNTER 2025-04-22 12:47 | Outpatient (CLI) | payer BC, SELFPAY ==
--- OUTSIDE RECORDS SUMMARY | 2025-04-22 12:52 | XMS_ITS | Clinical Summary ---
Author Organization [facility] Address [address] [place] [address] Care Team Providers Care Auto Garage Attendant Name Role Phone Ben Blackman MD Primary Care Provider [phone] Allergies No known active allergies Medications levothyroxine (SYNTHROID) 112 mcg tablet 1 Active spironolactone (ALDACTONE) 25 mg tablet 1 Active Saxenda 3 mg/0.5 mL (18 mg/3 mL) pen injector 1 Active ondansetron (ZOFRAN) 4 mg tablet 1 Active ondansetron ODT (ZOFRAN-ODT) 4 mg disintegrating tablet Dissolve 1 tablet oral every 4 hours as needed for nausea or vomiting. 15 tablet 1 Active diphenoxylate-atrop ine (LOMOTIL) 2.5-0.025 mg per tabletIndications:d iarrhea Take 1 tablet by mouth 4 (four) times a day as needed for diarrhea 30 tablet 1 Active Active Problems Problem Noted Date Diagnosed Date Gastroesophageal reflux disease without esophagi tis 05/06/2019 Morbid obesity due to excess calories 05/08/2016 Focal nodular hyperplasia of liver 05/08/2016 Fatty liver 12/13/2015 Overview (01/23/2021): 9/6/19 Fibroscan CAP 280, E 3.0 kPa Social History Tobacco Use Types Packs/Day Years Used Date Smoking Tobacco: Never Smokeless Tobacco: Never Alcohol Use Standard Drinks/Week Comments Not Currently 0 (1 standard drink = 0.6 oz pur e alcohol) Comments No Sex and Gender Information Value Date Recorded Sex Assigned at Not on file Legal Sex 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 Gender Identity Not on file Sexual Orientation Not on file Obstetrics History Last Filed Vital Signs Vital Sign Reading Time Taken Comments Blood Pressure 130/78 03/29/2024 11:15 AM CDT Pulse 62 03/29/2024 11:15 AM CDT Temperature 36.4 C (97.5 F) 01/23/2021 8:01 AM CDT Respiratory Rate 17 01/23/2021 8:01 AM CDT Oxygen Saturation 97% 01/23/2021 1:00 PM CDT Inhaled Oxygen Concentration - - Weight 70.1 kg (154 lb 9.6 oz) 03/29/2024 11:15 AM CDT Height 160 cm (5' 2.99) 03/29/2024 11:15 AM CDT Body Mass Index 27.39 03/29/2024 11:15 AM CDT Plan of Treatment Health Maintenance Due Date Last Done Comments Breast Cancer Screening-Mammogram 1985 Cervical Cancer Screening 1985 Depression Screening 1985 Hepatitis C Screening 1985 Varicella Vaccines (1 of 2 - 13+ 2-dose series) 1998 Regular Well Visit/Exam 18-64 2003 Pneumococcal vaccine <65 (1 of 2 - PCV) 01/12/2004 HPV Vaccines (1 - 3-dose SCD M series) 01/12/2012 Influenza Vaccine (#1) 2025 06/09/2017 DTaP/Tdap/Td Vaccine (8 - Td or Tdap) 11/06/2026 11/06/2016, 02/02/2007, 03/23/1999, Additional history exists Insurance [facility] OOS BLUE ACC CHOICE OOS Care Teams Auto Garage Attendant Relationship Specialty Start Date End Date Ben Blackman MD PCP - General 01/23/21
[2025-04-22 13:56] LABS: Alanine Aminotransferase 16 U/L (6-35); Albumin Level 4.5 g/dL (3.5-5.1); Alkaline Phosphatase 34 U/L (38-126); Anion Gap 8 mmol/L (4-12); Aspartate Amino Transferase 27 U/L (14-36); Bilirubin,Total 1.0 mg/dL (0.2-1.3); Blood Urea Nitrogen 18 mg/dL (7-17); Calcium 9.3 mg/dL (8.4-10.2); Carbon Dioxide 27 mmol/L (22-30); Chloride 103 mmol/L (98-107); Estimated Glomerular Filt Rate > 60; Glucose 85 mg/dL (65-110); Potassium 3.5 mmol/L (3.4-5.0); Sodium 138 mmol/L (137-145); Total Protein 7.2 g/dL (6.3-8.2)
[2025-04-22 14:03] LABS: Free T4 Free Thyroxine 1.27 ng/dL (0.78-2.19)
[2025-04-22 14:32] LABS: Thyroid Stimulating Hormone 0.231 uIU/mL (0.465-4.680)
== END 2025-04-22 12:48 | disposition home or self-care (01) ==
LOC: ANHLAB 12:48
PROVIDERS: PCP Family Medicine; Visit Provider Internal Medicine Endocrinology, Diabetes & Metabolism
DX: E03.9 Hypothyroidism, unspecified (principal); E55.9 Vitamin D deficiency, unspecified; Z68.28 Body mass index [BMI] 28.0-28.9, adult
CPT/HCPCS: 36415; 80053; 82306; 84439; 84443

== ENCOUNTER 2025-06-28 11:26 | Outpatient (CLI) | payer BC, SELFPAY ==
--- OUTSIDE RECORDS SUMMARY | 2024-10-14 03:00 | XMS_ITS | Continuity of Care Document ---
Author Organization [facility] Address [address] [place] [address] Phone Care Team Providers Care Bibliographic Services Specialist Name Role Phone Ellen Zarate Unavailable Unavai lable Allergies, Adverse Reactions, Alerts Substance Reaction Status Criticality No Known Allergies Active No Inform ation Medications Medication Instructions Dosage Effective Dates (start - stop) Status Comments spironolactone 100 mg tablet - Active Wegovy 2.4 mg/0.75 mL subcutaneous pen injector - Active liothyronine 5 mcg tablet - Active Synthroid 100 mcg tablet - Active fluconazole 150 mg tablet - Active cephalexin 500 mg tablet TAKE 1 TABLET BY MOUTH THREE TIMES A DAY X7 DAYS - Active hydrocodone 5 mg-acetaminophen 325 mg tablet TAKE 1 TABLET BY MOUTH EVERY 8 HOURS NEEDED FOR PAIN - Active ondansetron 4 mg disintegrating tablet - Active azithromycin 250 mg tablet TAKE 2 TABLETS BY MOUTH TODAY, THEN TAKE 1 TABLET DAILY FOR 4 DAYS DIRECTED - Active xvewbvyb-vqcpzwgdu-pgrd meth 3.5 mg/mL-10,000 unit/mL-0.1% eye drops - Active Wegovy 1.7 mg/0.75 mL subcutaneous pen injector - Active Wegovy 1 mg/0.5 mL subcutaneous pen injector - Active amoxicillin 875 mg-potassium clavulanate 125 mg tablet - Active Procedures Procedure Date X-ray exam both knees, standing 025 X-ray exam knee, 1 or 2 views 5 Office/outpatient visit,moira osman 2024 BMI Documented Above Normal Limit F/U Pl an Doc Advance Directives Directive Yes / No Effective Date File Name No Information Encounters Encounter Description Practice Location Reason(s) For Visit Diagnoses Date Provider Providers Copied on Encounter Office/outpa tient visit,, [facility], [address], [place], [id number], tel:[phone] [facility] left knee pain (chief complaint) Pain in left kneeChondromalaci a patellae, left knee Etienne Hughes. [address], [place], [place], [id number] , [place]. tel:[phone] Family History Family Member Type Diagnosis Age At Onset No Information Payers Payer name Insurance type Covered green party ID Glenys lind(s) Carlo Curry [facility] [id number] Social History Type Description Quantity Date Captured Comments Alcohol Use Details Caffeine Use Details Unknown Tobacco Use Status No Information Smoking Status Former smoker Non-Smoking Tobacco Use Details : No Details Available : No Details Available Sex Female Vital Signs Date / Time: Height Weight BMI Pulse Rate Blood Pressure Temperature Respiratory Rate Body Surface Area Head Circumference Head Circ. Percentile Wt./Juan. Percentile BMI percentile Pulse Ox Inhaled Ox 9:01 AM 63.00 in 68.039 kg (150.00 lbs) 26.5 7 kg/m eter (2) Chief Complaint And Reason For Visit From encounter dated 10/14/2024 09:00'. left knee pain (chief complaint). Description: Ms Metcalf is a 39 year old female who complains of left knee pain. She presents with pain and swelling on the left side. She states that the symptoms have been chronic non-traumatic. The symptoms occur occasionally. The problem is unchanged. Currently the patient states that the symptoms are moderate. The pain is described as aching and throbbing. The patient is experiencing pain in the following location: lower leg on the left side. She also reports additional pain in the entire knee region on the left side. She rates her worst pain as 5/10. Thesymptoms are aggravated by descending stairs. Vanssicca states that the symptoms are relieved by OTCmedicines. She denies having any associated symptoms. Prior NSAIDs include ibuprofen. She had acl reconstruction in 2008. She experienced previous injury. She does hiit workouts and walks for exercise. Reason For Referral Reason For Referral No Information Plan Of Treatment Date Type Action Status Referral Ordered: X-ray exam knee, 1 or 2 views LT ordered Referral Ordered: X-ray exam both knees, standing ordered History Of Present Illness Encounter Date Complaint History Of Prese nt Illness left knee pain Ms Metcalf is a [age] year old female who complains of left knee pain. She presents with pain and swelling on the left side. She states that the symptoms have been chronic non-traumatic. The symptoms occur occasionally. The problem is unchanged. Currently the patient states that the symptoms are moderate. The pain is described as aching and throbbing. The patient is experiencing pain in the following location: lower leg on the left side. She also reports additional pain in the entire knee region on the left side. She rates her worst pain as 5/10. The symptoms are aggravated by descending stairs. Caticca states that the symptoms are relieved by OTC medicines. She denies having any associated symptoms. Prior NSAIDs include ibuprofen. She had acl reconstruction in 2008. She experienced previous injury. She does hiit workouts and walks for exercise. Functional Status Date Functional Assessmen t No Information Instructions Date Instruction Additional Infor mation No Information Assessments Type Assessment Date assessment Pain in left knee assessment Chondromalacia patellae, left kn ee impression Patient's history, e xam, and imaging were reviewed in detail, as well as the pathophysiology and treatment options of the condition. Recom otc Aleve bid with food x 2 weeks. Discussed activity modification. If pain persists, consider cortisone. Follow up prn. Mental Status Date Cognitive Assessment Orientation - Vevay ed to time, place, person, situation. Patient Care Teams Name Effective Dates (start - stop) Status Members No Information
--- OUTSIDE RECORDS SUMMARY | 2025-06-28 12:04 | XMS_ITS | Clinical Summary ---
Author Organization [facility] Address [address] [place] [address] Care Team Providers Care Teacher Industrial Arts Name Role Phone Ben Blackman MD Primary Care Provider [phone] Source Comments [facility],non-owned Affiliates and Associated Physician Practices is amultiple site organization consisting of ambulatory clinics and hospital sitesin [place], [place], [place] and [place]. This disclosure is being madepursuant to the Care Everywhere program and may not contain all information available regarding this patient. Last updated 18.[facility] Allergies No known active allergies Medications * Be aware that medications may not be up to date on this document. Alwaysverify current medications with the patient. levothyroxine (Synthroid) 88 MCG tablet Take 1 (one) tablet by mouth daily before breakfast Active spironolactone (ALDACTONE) 100 MG tablet Take 1 (one) tablet by mouth once daily In addition to 25mg Active Liraglutide -Weight Management 18 MG/3ML Inject 1 Each subcutaneously Active liothyronine (Cytomel) 5 MCG tablet Take 1 (one) tablet by mouth once daily 3 Active Active Problems Problem Noted Date Diagnosed Date Gastroesophageal reflux disease without esophagi tis 05/06/2019 Morbid obesity due to excess calories 05/08/2016 Focal nodular hyperplasia of liver 05/08/2016 Fatty liver 12/13/2015 Overview (09/12/2022): 04/23/19 Fibroscan CAP 280, E 3.0 kPa 09/10/22 Fibroscan CAP 252, LSM 7.2 kPa Encounters Date Type Department Care Team Description 04/26/2025 8:30 AM CDT Procedure visit [facility] - Cosmetic Dermatology [address], [address] [place] [address] Kavitha Hawkins MD Erythema ; Localized superficial swelling, mass, or lump 04/26/2025 Travel from Last 3 Months Social History Tobacco Use Types Packs/Day Years Used Date Smoking Tobacco: Former Cigarettes 0.5 5 Smokeless Tobacco: Never Tobacco Cessation:Counseling Given: Not Answered Comments:Quit smoking at 22y/o Alcohol Use Standard Drinks/Week Comments Yes 3 (1 standard drink = 0.6 oz pur e alcohol) 1 glass wine or marguarita Comments No Sex and Gender Information Value Date Recorded Sex Assigned at Not on file 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 Gender Identity Not on file Sexual Orientation Not on file Last Filed Vital Signs Vital Sign Reading Time Taken Comments Blood Pressure 125/74 09/10/2022 3:37 PM ROUTING MACHINE OPERATOR Pulse 65 09/10/2022 3:37 PM ROUTING MACHINE OPERATOR Temperature 36.4 C (97.5 F) 09/10/2022 3:37 PM ROUTING MACHINE OPERATOR Respiratory Rate 18 04/23/2019 1:05 PM CDT Oxygen Saturation 100% 09/10/2022 3:37 PM ROUTING MACHINE OPERATOR Inhaled Oxygen Concentration - - Weight 82.1 kg (181 lb) 09/10/2022 3:37 PM ROUTING MACHINE OPERATOR Height 162.6 cm (5' 4) 09/10/2022 3:37 PM ROUTING MACHINE OPERATOR Body Mass Index 31.07 09/10/2022 3:37 PM ROUTING MACHINE OPERATOR Plan of Treatment Health Maintenance Due Date Last Done Comments LIPID TESTING 1985 MAMMOGRAM 1985 HIV SCREENING 01/12/2000 DTAP/TDAP/TD VACCINES (1 - Tdap) 01/12/2004 HEPATITIS B VACCINE (1 of 3 - 19+ 3-dose series) 01/12/2004 PAP SMEAR 2006 HPV VACCINE (1 - 3-dose SCDM series) 01/12/2012 DEPRESSION SCREENING 08/18/2024 COVID-19 VACCINE (2024- season) 2025 10/17/2020, 09/26/2020 INFLUENZA VACCINE (#1) 2025 4, 06/25/2021, 06/09/2017, Additional history exists ZOSTER VACCINE (1 of 2) 2035 HEPATITIS C SCREENING Completed 06/13/2015 HIB VACCINE Aged Out No longer eligi ble based on patient's age to complete this topic MENINGOCOCCAL (Group B) VACCINE SHARED DECISION-MAKING Aged Out No longer eligible based on patient's age to complete this topic MENINGOCOCCAL GROUPS A/C/Y/W VACCINE Aged Out No longer eligible based on patient's age to complete this topic PNEUMOCOCCAL VACCINE Aged Out No long er eligible based on patient's age to complete this topic Goals Goal Patient Goal Type Associated Problems Recent Progress Patient-Stated? Author Medication Management General On track( 023 3:53 PM ROUTING MACHINE OPERATOR) No Sally Chapman, RN Note: Expected end date: ongoing Interventions: Take all medications as prescribed Let your doctor know right away about any changes in your medications Make sure to request a refill of your medication at least one week prior to your last dose Safety General On track( 023 3:53 PM ROUTING MACHINE OPERATOR) No Sally Chapman, ANTONIO Note: Expected end date: ongoing Interventions: Your nurse will assess your risk for falls/injury each visit Be aware of medications that could predispose you to falling Wear non-skid/rubber sole footwear Keep personal items within easy reach Use some light at night in your room Procedures Procedure Name Priority Date/Time Associated Diagnosis Comments PROC GENERIC PROCEDURE ORDER Routine 04/26/2025 10:52 AM CDT Erythema Localized superficial swelling, mass, or lump HEPATITIS C ANTIBODY Routine 06/13/2015 2:53 PM CDT from Last 3 Months or Most Recently Relevant to Health Maintenance Results * PROC GENERIC PROCEDURE ORDER (04/26/2025 10:52 AM CDT) Narrative Tessie Robertson RN - 04/26/2025 10:52 AM CDT Kavitha Hwakins MD 04/27/2025 12:37 PM Procedure: V-Beam Laser 595 nmTreatment heavy truck technician: Tessie Robertson RN Attending Physician: Kavitha Hawkins MD Treatment number: 3 Response to previous treatment: fair Problems with last treatment: none Diagnosis: erythema, localized superficial swelling, mass or lump Size: 5 cm x 3 cm Goals and expectations reviewed with patient. Patient informed of the need for several treatments to achieve maximum improvement. Consent Obtained: yes Photographs taken: yes Skin Type: II- III Hair Color: brunette Procedure: Appropriate eye protection worn by all persons in laser suite. Appropriate laser warning signs posted and door is closed to suite. Skin is cleaned of make-up and topicals as needed. Anesthetic used: none Lesion/area Treated Spot Size (mm) Pulse Duration (ms) Energy Joules (J/cm2) # of Pulses DCD [place] Pulse Stacking Left lower orbit 10 6 6.5 26 30/20 no Purpura:No Lesion/area edema: none Lesion/area erythema: mild Patient tolerated the procedure well . Complications: None . Post therapy treatment: ice Vanicream spf 30 mineral sunscreen applied. Charge: to ins Comments: S/P 3 VBeam treatments. States she thinks area is improving. I gently palpated the area; Pt denies tenderness, discoloration or lumpiness. Pt states lumpis softening. Advised to wait 2 to 3 months for end result and if she feels she wants to pursue further treatment she will need to be re-evaluated by Dr. Hawkins. Post procedure instructions reviewed and provided to patient. Tessie Robertson RN us Kavitha Hawkins MD PROCEDURE/MINOR SURGIC AL ORDERABLES Edited Result - Final * HEPATITIS C ANTIBODY (06/13/2015 2:53 PM CDT) Hepatitis C Antibody NON-REACT EZIO NON-REACT EZIO [facility] ([facility]) Signal/Cutoff 0.03 <1.00 [facility]) Comment: Effective June 26, 2015, Hepatitis C Antibody (test code 8472) will be revised to automatically reflex to the Hepatitis C Viral RNA, Quantitative, Real-Time PCR assay if the antibody screening result is Reactive. We are instituting this change per the CDC/USPSTF recommendations regarding the HCV diagnostic algorithm. As of June 26, 2015 the name of the test code 8472 will be Hepatitis C Antibody with Reflex to HCV RNA, Quantitative, Real-Time PCR. This change will also be reflected in standard and custom profiles that currently include test code 8472. Test Performed at: [facility] [address] [place] [address] AMIRA COATS DO,MPH Blood specimen (specimen) BLOOD SPECIMEN / Unknown 06/13/2015 2:53 PM CDT 06/13/2015 2:53 PM CDT John Estevez MD LAB - CHEMISTRY ORDERABLES Fin al Result [facility]) [address] [place] [address] from Last 3 Months or Most Recently Relevant to Health Maintenance Insurance ANTHEM ANTHEM Care Teams Teacher Industrial Arts Relationship Specialty Start Date End Date Ben Blackman MD [address] [place] [address] PCP - General Family Medicine 10/08/16
--- OUTSIDE RECORDS SUMMARY | 2025-06-28 12:04 | XMS_ITS | Clinical Summary ---
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
[2025-06-28 14:13] LABS: Thyroid Stimulating Hormone 11.300 uIU/mL (0.465-4.680)
== END 2025-06-28 11:27 | disposition home or self-care (01) ==
LOC: ANHLAB 11:27
PROVIDERS: PCP Family Medicine; Visit Provider Internal Medicine Endocrinology, Diabetes & Metabolism
DX: E03.9 Hypothyroidism, unspecified (principal)
CPT/HCPCS: 36415; 84443